=== PATIENT | female | born 1980 | race Caucasian/White ===

== ENCOUNTER 2019-11-20 16:51 | Emergency (ER) | payer MEDICAID ==
[2019-11-20 17:30] VITALS: PULSE 68
--- NOTE | 2019-11-20 17:36 | ERPHSYRPT ---
- History of Present Illness Time Seen by Provider: 11/20/19 17:33 Source: patient Exam Limitations: no limitations Patient Subjective Stated Complaint: patient states " i have been coughing for last 3 weeks" Patient stated she just returned from [place]. Patient states she was staying with [id number] in which she was exposed to second hand smoke. Patient states she has chronic Bronchitis. Patient states she is unable to lay flat R/T SOB. Triage Nursing Assessment: Patient arrived and ambulated with steady gait to room. Patient at bedside. Patient A/O times 4. Patient able to answer questions appropriatley. Patient noted with congested cough. Lungs noted with wheezes throughout A/P. Respiratory non-labored. No respiratory distress noted. Patient did cough up scant/small amount of whitish sputum. Physician History: patient states " i have been coughing for last 3 weeks" Patient stated she just returned from [place]. Patient states she was staying with [id number] in which she was exposed to second hand smoke. Patient states she has chronic Bronchitis. Patient states she is unable to lay flat R/T SOB. Timing/Duration: week(s) (three weeks) Cough Quality/Degree: productive cough Associated Symptoms: denies symptoms International travel in last 2 weeks: No Allergies/Adverse Reactions: aspirin Allergy (Verified 11/20/19 17:02) Hx Tetanus, Diphtheria Vaccination/Date Given: No Hx Influenza Vaccination/Date Given: Yes Hx Pneumococcal Vaccination/Date Given: No - Review of Systems Constitutional: No Fever, No Chills Eyes: No Symptoms Ears, Nose, & Throat: No Symptoms Respiratory: Cough, No Dyspnea Cardiac: No Chest Pain, No Edema, No Syncope Abdominal/Gastrointestinal: No Abdominal Pain, No Nausea, No Vomiting, No Diarrhea Genitourinary Symptoms: No Dysuria Musculoskeletal: No Back Pain, No Neck Pain Skin: No Rash Neurological: No Dizziness, No Focal Weakness, No Sensory Changes Psychological: No Symptoms Endocrine: No Symptoms All Other Systems: Reviewed and Negative - Past Medical History Neurological History: Migraines ENT History: No Pertinent History Cardiac History: No Pertinent History Respiratory History: Bronchitis Endocrine Medical History: Hypoglycemia Musculoskeletal History: Fractures GI Medical History: No Pertinent History History: No Pertinent History Psycho-Social History: Depression, Other Female Reproductive Disorders: No Pertinent History Other Medical History: PTSD - Past Surgical History Past Surgical History: Yes Neuro Surgical History: No Pertinent History Cardiac: No Pertinent History Respiratory: No Pertinent History Gastrointestinal: Cholecystectomy Genitourinary: No Pertinent History Musculoskeletal: Orthopedic Surgery Female Surgical History: Section Other Surgical History: Patient states she is slow to wake up after Anesthesia. Patient 4 C-sections. Patient states she had Right broken shoulder and right ankle FX. Patient states they did not complete surgery just set them. - Social History Smoking Status: Former smoker Exposure to second hand smoke: Yes Drug Use: none Patient Lives Alone: No - Female History Hx Last Menstrual Period: 11/11/2019 Hx Now: No - Nursing Vital Signs Nursing Vital Signs: Initial Vital Signs Temperature 98.2 F 11/20/19 17:04 Pulse Rate 68 11/20/19 17:04 Respiratory Rate 20 11/20/19 17:04 Blood Pressure 124/88 11/20/19 17:04 O2 Sat by Pulse Oximetry 98 11/20/19 17:04 Pain Scale Pain Intensity 0 - Physical Exam General Appearance: no apparent distress, alert Eye Exam: PERRL/EOMI, eyes nml inspection Ears, Nose, Throat Exam: normal ENT inspection, TMs normal, pharynx normal, moist mucous membranes Neck Exam: normal inspection, non-tender, supple, full range of motion Respiratory Exam: diminished breath sounds, rhonchi, No respiratory distress Cardiovascular Exam: regular rate/rhythm, normal heart sounds Gastrointestinal/Abdomen Exam: soft, No tenderness Back Exam: normal inspection, No CVA tenderness, No vertebral tenderness Extremity Exam: normal inspection, normal range of motion Neurologic Exam: alert, oriented x 3, cooperative, normal mood/affect, sensation nml, No motor deficits Skin Exam: normal color, warm, dry, No rash Lymphatic Exam: No adenopathy SpO2: 98 - Course Nursing assessment & vital signs reviewed: Yes - Radiology Exams Chest X-ray Interpretation: Reviewed by me (bronchitic changes) Ordered Tests: Active Orders 24 hr Category Date Time Status CHEST 2 VIEWS (PA AND LAT) Stat Exams 11/20/19 17:06 Taken CBC W DIFF Stat Lab 11/20/19 17:06 Ordered CMP Stat Lab 11/20/19 17:06 Ordered - Progress Progress: improved Air Movement: good Blood Culture(s) Obtained: No Antibiotics given: Yes Counseled pt/family regarding: lab results, diagnosis, need for follow-up, rad results - Departure Departure Disposition: Home Clinical Impression: Bronchitis Condition: Stable Critical Care Time: No Referrals: HERVE GANNON, [ACTIVE STAFF] - Follow Up with PCP/3 days Instructions: Cough, Adult (DC), Acute Bronchitis, Adult (DC) Additional Instructions: Discharge/Care Plan ROSEANNA WASHINGTON was seen on 11/20/19 in the Emergency Room. The patient was counseled regarding Diagnosis,Lab results, Imaging studies, need for follow up and when to return to the Emergency Room. Prescriptions given: Discharge Note I have spoken with the patient and/or caregivers. I have explained the patient' s condition, diagnosis and treatment plan based on the information available to me at this time. I have answered the patient's and/or caregiver's questions and addressed any concerns. The patient and/or caregivers have as good understanding of the patient's diagnosis, condition and treatment plan as can be expected at this point. The vital signs have been stable. The patient's condition is stable and appropriate for discharge from the emergency department. The patient will pursue further outpatient evaluation with the primary care physician or other designated or consulting physician as outlined in the discharge instructions. The patient and/or caregivers are agreeable to this plan of care and follow-up instructions have been explained in detail. The patient and/or caregivers have received these instruction. The patient/and or caregivers are aware that any significant change in condition or worsening of symptoms should prompt an immediate return to this or the closest emergency department or call 911. ROSEANNA WASHINGTON was seen on 11/20/19 n the Emergency Room. At that time you were treated for an emergent condition, during your visit Laboratory, Radiology and/ or other procedures may have been ordered. It is very important that you follow- up with your Primary Care Physician within the next 24-48 hours to review your Emergency Room visit and the final results of testing that was ordered. Some test results such as Urine Cultures, Blood Cultures, and other cultures if ordered will not be finalized for 24-48 hours. If you do not have a Primary Care Provider please call the medical records department at [phone] ext [phone] to obtain a copy of your results or you may sign into our patient portal to obtain these results by visiting us @ [email or web address] and completing the following steps: 1. Click on the Patient Portal link 2. Click the Patient Self Enrollment Link to complete the enrollment form and entering your 3. Once the enrollment form is completed you will receive an email with a temporary ID and password at the email address you provided. 4. Next choose a user name and password. Your user name must be at least 4 characters long and your password must be at least 4 characters long. 5. Choose a security question from the list and provide your answer to the question. If you already have signed into the Health Portal you may access your Health Care Information 09/06 by the following steps: 1. Login to our website @ [email or web address] 2. Enter your original user name and password. FAQS The [facility] Health Portal is an online tool that contains your Lab Results, Radiology Reports, Visit History, Discharge Instructions and Health Summary Lab and Radiology Results will not be available for 72 hours on the portal. The Portal is a secure site, passwords are encryted and URLs are re-written so they cannot be copied and pasted. You and authorized family members are the only ones who can access your Portal. Also there is a timeout feature that protects your information if you leave the Portal page open. If you have technical difficulty please use the Contact Us link on the page this will allow you to submit any questions you have regarding the Portal or you may contact the Medical Record Department at [phone] ext [phone]. Prescriptions: Amoxicillin 500 mg PO TID #30 tablet Benzonatate [Tessalon Perle] 100 mg PO QID #30 capsule
[2019-11-20] MEDS ORDERED: Rocephin 1000 MG INJ IM ONE (17:37)
[2019-11-20] MEDS ORDERED: XYLOCAINE 1% HCL 20 ML MDV ONE (17:40)
[2019-11-20] MEDS ORDERED: Rocephin 1000 MG INJ ONE (17:40)
[2019-11-20 18:01] LABS: Absolute Neutrophil Ct (ANC) 5.05 (1.4-6.9); BASOPHIL % 0.8 % (0.0-0.4); Basophil (Absolute #) 0.06 (0-0.4); Eosinophil (Absolute #) 0.24 (0-0.5); Hematocrit 37.2 % (35-47); Hemoglobin 11.5 gm/dl (12.0-16.0); Lymphocyte (Absolute #) 1.98 (1.0-4.6); Mean Cell Volume 79.7 fl (78-100); Mean Corpuscular Hemoglobin 24.6 pg (26-32); Mean Corpuscular Hgb Concent. 30.9 g/dl (32-36); Mean Platelet Volume 10.4 fl (7.5-11.0); Monocytes % 7.6 % (0.0-12.0); Neutrophil % 63.6 % (36.0-66.0); Platelet Count 405 K/mm3 (150-450); Red Blood Count 4.67 M/mm3 (4.1-5.4); Red Cell Distribution Width 14.9 % (11.5-14.0); White Blood Count 7.9 K/mm3 (4.0-10.5)
[2019-11-20 18:14] LABS: ALKALINE PHOSPHATASE 114 U/L (38-126); ANION GAP 10.2 MEQ/L (5-15); BLOOD UREA NITROGEN 8 mg/dL (7-17); CHLORIDE 105 mmol/L (98-107); Calcium 9.4 mg/dL (8.4-10.2); Carbon Dioxide 28 mmol/L (22-30); Glucose 95 mg/dL (74-106); Potassium 4.3 mmol/L (3.5-5.1); SGOT/AST 18 U/L (14-36); SGPT/ALT 11 U/L (0-35); SODIUM 139 mmol/L (137-145)
[2019-11-20 18:19] VITALS: BP 123/90; O2SAT 99
--- NOTE | 2019-11-20 20:10 | XRAY ---
Indication: Cough 3 weeks. Low-grade fever. Comparison: None PA/lateral chest demonstrates minimal bilateral infrahilar interstitial opacities, possibly pneumonitis in the right clinical setting. Remaining heart, upper lungs, and bony thorax are unremarkable.
== END 2019-11-20 18:19 | disposition home or self-care (01) ==
LOC: ED 16:51
DX: J40 Bronchitis, not specified as acute or chronic (principal)
CPT/HCPCS: 36415; 71046; 80053; 85025; 96372; 99284; J0696

== ENCOUNTER 2019-12-03 22:01 | Emergency (ER) | payer MEDICAID ==
[2019-12-03] MEDS ORDERED: SUBLIMAZE 100 MCG/2 ML IV ONE (22:11)
[2019-12-03] MEDS ORDERED: Sodium Chloride 0.9% 1000 ML 1,000 ML IV STA (22:11)
[2019-12-03 22:35] LABS: Absolute Neutrophil Ct (ANC) 5.63 (1.4-6.9); BASOPHIL % 0.6 % (0.0-0.4); Basophil (Absolute #) 0.06 (0-0.4); Eosinophil % 1.8 % (0.00-5.0); Eosinophil (Absolute #) 0.17 (0-0.5); Hematocrit 37.8 % (35-47); Hemoglobin 11.9 gm/dl (12.0-16.0); Lymphocyte (Absolute #) 2.86 (1.0-4.6); Lymphocytes % 29.8 % (24.0-44.0); Mean Cell Volume 78.3 fl (78-100); Mean Corpuscular Hemoglobin 24.6 pg (26-32); Mean Corpuscular Hgb Concent. 31.5 g/dl (32-36); Monocyte (Absolute #) 0.88 (0.0-1.3); Monocytes % 9.2 % (0.0-12.0); Neutrophil % 58.6 % (36.0-66.0); Platelet Count 337 K/mm3 (150-450); Red Blood Count 4.83 M/mm3 (4.1-5.4); Red Cell Distribution Width 14.9 % (11.5-14.0); White Blood Count 9.6 K/mm3 (4.0-10.5)
[2019-12-03] MEDS ORDERED: SUBLIMAZE 100 MCG/2 ML ONE (22:41)
[2019-12-03] MEDS ORDERED: Sodium Chloride 0.9% 1000 ML 1,000 ML ONE (22:41)
[2019-12-03 22:45] LABS: ALBUMIN 4.1 g/dL (3.5-5.0); ALKALINE PHOSPHATASE 99 U/L (38-126); AMYLASE 66 U/L (30-110); ANION GAP 11.7 MEQ/L (5-15); BLOOD UREA NITROGEN 16 mg/dL (7-17); CHLORIDE 103 mmol/L (98-107); Calcium 9.3 mg/dL (8.4-10.2); Carbon Dioxide 27 mmol/L (22-30); Creatinine 1 0.82 mg/dL (0.52-1.04); Glucose 114 mg/dL (74-106); LIPASE 119 U/L (23-300); Potassium 4.1 mmol/L (3.5-5.1); SGOT/AST 17 U/L (14-36); SGPT/ALT 12 U/L (0-35); SODIUM 138 mmol/L (137-145); Total Protein 7.9 g/dL (6.3-8.2)
[2019-12-03] MEDS ORDERED: BENADRYL 50 MG/ML IM ONE (23:11)
[2019-12-03] MEDS ORDERED: BENADRYL 50 MG/ML ONE (23:14)
[2019-12-03 23:20] VITALS: BP 142/104
[2019-12-04 00:22] VITALS: PULSE 76; O2SAT 98
--- NOTE | 2019-12-04 00:34 | ERPHSYRPT ---
- History of Present Illness Time Seen by Provider: 12/03/19 22:28 Historian: patient Exam Limitations: no limitations Patient Subjective Stated Complaint: pt states that she has had pain in r leg that radiates from calf to belly. states that pain has been going on since this am. Triage Nursing Assessment: pt states pain is 9/10 in both legs and abdomen Physician History: patient is a 39-year-old female who presents with a very strange symptom complex. She says that she started with cramps in the muscles of her leg which then moved into her abdomen. The pain has continued. Timing/Duration: today (in her and he) Activities at Onset: none Quality: cramping Abdominal Pain Onset Location: RLQ, LLQ, suprapubic Pain Radiation: no radiation Severity of Pain-Max: moderate Severity of Pain-Current: moderate Modifying Factors: Improves With: movement, palpation Associated Symptoms: weakness Previous symptoms: no prior history Allergies/Adverse Reactions: aspirin Allergy (Verified 11/20/19 17:02) Home Medications: Alprazolam 0.25 mg [xanAX 0.25 MG] 0.25 mg PO HS 11/20/19 [History] Bupropion HCl [Bupropion Xl] 150 mg PO DAILY 11/20/19 [History] Doxepin HCl 10 mg PO HS 11/20/19 [History] Ergocalciferol (Vitamin D2) [Vitamin D] 50,000 unit PO DAILY 11/20/19 [History] Ferrous Sulfate [Iron] 325 mg PO DAILY 11/20/19 [History] Fluoxetine HCl 20 mg [Prozac 20 MG] 40 mg PO DAILY 11/20/19 [History] Furosemide [Lasix] 20 mg PO DAILY 11/20/19 [History] lamoTRIgine [Lamotrigine] 100 mg PO DAILY 11/20/19 [History] Hx Tetanus, Diphtheria Vaccination/Date Given: No Hx Influenza Vaccination/Date Given: Yes Hx Pneumococcal Vaccination/Date Given: No - Review of Systems Constitutional: No Fever, No Chills Eyes: No Symptoms Ears, Nose, & Throat: No Symptoms Respiratory: No Cough, No Dyspnea Cardiac: No Chest Pain, No Edema, No Syncope Abdominal/Gastrointestinal: Abdominal Pain, No Nausea, No Vomiting, No Diarrhea Genitourinary Symptoms: No Dysuria Musculoskeletal: Myalgias, No Back Pain, No Neck Pain Skin: No Rash Neurological: No Dizziness, No Focal Weakness, No Sensory Changes Psychological: No Symptoms Endocrine: No Symptoms All Other Systems: Reviewed and Negative - Past Medical History Pertinent Past Medical History: Yes Neurological History: Migraines ENT History: No Pertinent History Cardiac History: No Pertinent History Respiratory History: Bronchitis Endocrine Medical History: Hypoglycemia Musculoskeletal History: Fractures GI Medical History: No Pertinent History History: No Pertinent History Psycho-Social History: Depression, Other Female Reproductive Disorders: No Pertinent History Other Medical History: PTSD - Past Surgical History Past Surgical History: Yes Neuro Surgical History: No Pertinent History Cardiac: No Pertinent History Respiratory: No Pertinent History Gastrointestinal: Cholecystectomy Genitourinary: No Pertinent History Musculoskeletal: Orthopedic Surgery Female Surgical History: Section Other Surgical History: Patient states she is slow to wake up after Anesthesia. Patient 4 C-sections. Patient states she had Right broken shoulder and right ankle FX. Patient states they did not complete surgery just set them. - Social History Smoking Status: Former smoker Exposure to second hand smoke: Yes Drug Use: none Patient Lives Alone: No - Female History Hx Last Menstrual Period: 11/17/19 Hx Now: No - Nursing Vital Signs Nursing Vital Signs: Initial Vital Signs Temperature 97.4 F 12/03/19 22:08 Pulse Rate 88 12/03/19 22:08 Respiratory Rate 18 12/03/19 22:08 Blood Pressure 169/103 12/03/19 22:08 O2 Sat by Pulse Oximetry 98 12/03/19 22:08 Pain Scale Pain Intensity 8 - Physical Exam General Appearance: no apparent distress, alert Eye Exam: PERRL/EOMI, eyes nml inspection Ears, Nose, Throat Exam: normal ENT inspection, pharynx normal, moist mucous membranes Neck Exam: normal inspection, non-tender, supple, full range of motion Respiratory Exam: normal breath sounds, lungs clear, No respiratory distress Cardiovascular Exam: regular rate/rhythm, normal heart sounds Gastrointestinal/Abdomen Exam: soft, No tenderness, No mass Back Exam: normal inspection, normal range of motion, No CVA tenderness, No vertebral tenderness Extremity Exam: normal inspection, normal range of motion, pelvis stable, other (all generalized muscle tenderness both lower extremities and lower abdomen) Neurologic Exam: alert, oriented x 3, cooperative, normal mood/affect, nml cerebellar function, sensation nml, No motor deficits Skin Exam: normal color, warm, dry SpO2: 98 - Course Nursing assessment & vital signs reviewed: Yes - CT Exams Abdomen/Pelvis CT Interpretation: Negative Ordered Tests: Active Orders 24 hr Category Date Time Status IV Insertion STAT Care 12/03/19 22:11 Active ABDOMEN AND PELVIS W CONTRAST [CT] Stat Exams 12/03/19 22:21 Taken CHEST WITH CONTRAST [CT] Stat Exams 12/03/19 22:44 Stop Req AMYLASE Stat Lab 12/03/19 22:34 Completed CBC W DIFF Stat Lab 12/03/19 22:34 Completed CK (IN-HOUSE) [CK-Creatinine Phosphokinase] Stat Lab 12/03/19 22:34 Completed CMP Stat Lab 12/03/19 22:34 Completed D-DIMER QUANTITATIVE Stat Lab 12/03/19 22:34 Completed LIPASE Stat Lab 12/03/19 22:34 Completed Lactic Acid Stat Lab 12/03/19 22:48 Completed UA W/RFX UR CULTURE Stat Lab 12/04/19 00:08 Ordered Medication Summary Discontinued Medications Generic Name Dose Route Start Last Admin Trade Name Julio César PRN Reason Stop Dose Admin Diphenhydramine HCl 50 mg 12/03/19 23:11 12/03/19 23:15 Benadryl 50 Mg/Ml IM 12/03/19 23:12 50 mg STAT ONE Administration Diphenhydramine HCl Confirm 12/03/19 23:14 Benadryl 50 Mg/Ml Administered 12/03/19 23:15 Dose 50 mg .ROUTE .STK-MED ONE Fentanyl Citrate 100 mcg 12/03/19 22:11 12/03/19 22:51 Sublimaze 100 Mcg/2 Ml IV 12/03/19 22:12 100 mcg STAT ONE Administration Fentanyl Citrate Confirm 12/03/19 22:41 Sublimaze 100 Mcg/2 Ml Administered 12/03/19 22:42 Dose 100 mcg .ROUTE .STK-MED ONE Sodium Chloride 1,000 mls @ 999 mls/hr 12/03/19 22:11 12/03/19 22:50 Sodium Chloride 0.9% 1000 Ml IV 12/03/19 23:11 999 mls/hr .Q1H1M STA Administration Sodium Chloride Confirm 12/03/19 22:41 Sodium Chloride 0.9% 1000 Ml Administered 12/03/19 22:42 Dose 1,000 mls @ ud .ROUTE .STK-MED ONE Lab/Rad Data: Laboratory Result Diagrams 12/03/19 22:34 12/03/19 22:34 Laboratory Results 12/03/19 12/03/19 12/03/19 Range/Units 22:48 22:34 22:34 WBC (4.0-10.5) K/mm3 RBC (4.1-5.4) M/mm3 Hgb (12.0-16.0) gm/dl Hct (35-47) % MCV (78-100) fl MCH (26-32) pg MCHC (32-36) g/dl RDW (11.5-14.0) % Plt Count (150-450) K/mm3 MPV (7.5-11.0) fl Gran % (36.0-66.0) % Eos # (Auto) (0-0.5) Absolute Lymphs (auto) (1.0-4.6) Absolute Monos (auto) (0.0-1.3) Lymphocytes % (24.0-44.0) % Monocytes % (0.0-12.0) % Eosinophils % (0.00-5.0) % Basophils % (0.0-0.4) % Absolute Granulocytes (1.4-6.9) Basophils # (0-0.4) D-Dimer 574 H* (215-500) ng/mL Sodium (137-145) mmol/L Potassium (3.5-5.1) mmol/L Chloride (98-107) mmol/L Carbon Dioxide (22-30) mmol/L Anion Gap (5-15) MEQ/L BUN (7-17) mg/dL Creatinine (0.52-1.04) mg/dL Estimated GFR ML/MIN Glucose (74-106) mg/dL Lactic Acid 1.2 (0.4-2.0) Calcium (8.4-10.2) mg/dL Total Bilirubin (0.2-1.3) mg/dL AST (14-36) U/L ALT (0-35) U/L Alkaline Phosphatase (38-126) U/L Creatine Kinase 266 H (30-135) U/L Serum Total Protein (6.3-8.2) g/dL Albumin (3.5-5.0) g/dL Amylase (30-110) U/L Lipase (23-300) U/L 12/03/19 12/03/19 Range/Units 22:34 22:34 WBC 9.6 (4.0-10.5) K/mm3 RBC 4.83 (4.1-5.4) M/mm3 Hgb 11.9 L (12.0-16.0) gm/dl Hct 37.8 (35-47) % MCV 78.3 (78-100) fl MCH 24.6 L (26-32) pg MCHC 31.5 L (32-36) g/dl RDW 14.9 H (11.5-14.0) % Plt Count 337 (150-450) K/mm3 MPV 11.0 (7.5-11.0) fl Gran % 58.6 (36.0-66.0) % Eos # (Auto) 0.17 (0-0.5) Absolute Lymphs (auto) 2.86 (1.0-4.6) Absolute Monos (auto) 0.88 (0.0-1.3) Lymphocytes % 29.8 (24.0-44.0) % Monocytes % 9.2 (0.0-12.0) % Eosinophils % 1.8 (0.00-5.0) % Basophils % 0.6 (0.0-0.4) % Absolute Granulocytes 5.63 (1.4-6.9) Basophils # 0.06 (0-0.4) D-Dimer (215-500) ng/mL Sodium 138 (137-145) mmol/L Potassium 4.1 (3.5-5.1) mmol/L Chloride 103 (98-107) mmol/L Carbon Dioxide 27 (22-30) mmol/L Anion Gap 11.7 (5-15) MEQ/L BUN 16 (7-17) mg/dL Creatinine 0.82 (0.52-1.04) mg/dL Estimated GFR > 60.0 ML/MIN Glucose 114 H (74-106) mg/dL Lactic Acid (0.4-2.0) Calcium 9.3 (8.4-10.2) mg/dL Total Bilirubin 0.30 (0.2-1.3) mg/dL AST 17 (14-36) U/L ALT 12 (0-35) U/L Alkaline Phosphatase 99 (38-126) U/L Creatine Kinase (30-135) U/L Serum Total Protein 7.9 (6.3-8.2) g/dL Albumin 4.1 (3.5-5.0) g/dL Amylase 66 (30-110) U/L Lipase 119 (23-300) U/L - Progress Progress: improved - Departure Departure Disposition: Home Clinical Impression: Myalgia Condition: Fair Critical Care Time: No Referrals: DOCTOR,NO FAMILY [Primary Care Provider] - Instructions: Muscle Spasms (DC) Prescriptions: Hydrocodone/APAP 5-325 Tab^^^ [[place] 5-325 Tablet^^^] 1 tab PO Q6HPRN PRN #10 tablet MDD 6 PRN Reason: Pain
[2019-12-04 01:02] LABS: Appearance CLOUDY (CLEAR); Bacteria FEW /HPF (NEGATIVE); Bilirubin NEGATIVE (NEGATIVE); Blood SMALL Ery/ul (0-5); Epithelial Cells RARE /HPF (FEW); Glucose NEGATIVE (NEGATIVE); Ketones NEGATIVE (NEGATIVE); Leukocyte Esterase NEGATIVE (NEGATIVE); Mucus SLIGHT /HPF (NEGATIVE); Nitrite NEGATIVE (NEGATIVE); Protein,Urine Dip NEGATIVE (Negative); Specific Gravity >1.060 (1.005-1.025); Urobilinogen NEGATIVE mg/dL (0-1)
[2019-12-04 01:03] LABS: Budding Yeast Rare /HPF (NEGATIVE)
--- NOTE | 2019-12-04 08:27 | XRAY ---
Indication: Bilateral leg pain. Multiple contiguous axial images obtained through the abdomen and pelvis using 80 cc of Isovue-370 contrast only. Comparison: None Lung bases are clear. Heart is not enlarged. Stomach is distended with food. Noncontrasted stomach and bowel loops appear nonobstructed. Normal appendix. There is mild scattered colonic fecal debris throughout. Minimal scattered descending and sigmoid diverticulosis. Previous cholecystectomy. No free fluid/air. Remaining liver, pancreas, spleen, adrenal glands, kidneys, ureters, bladder, uterus, aorta, and IVC appear unremarkable. No pathologic retroperitoneal lymphadenopathy. Osseous structures intact. Impression: 1. Mild fecal stasis without obstruction and minimal colonic diverticulosis. 2. Remaining CT abdomen/pelvis with contrast exam is negative. Comment: Preliminary interpretation was made by [facility]. No critical discrepancy.
== END 2019-12-04 00:56 | disposition home or self-care (01) ==
LOC: ED 22:01
DX: M79.18 Myalgia, other site (principal); R10.13 Epigastric pain; R10.31 Right lower quadrant pain; R10.32 Left lower quadrant pain; Z79.899 Other long term (current) drug therapy; E16.2 Hypoglycemia, unspecified; F43.12 Post-traumatic stress disorder, chronic
CPT/HCPCS: 36000; 36415; 74177; 80053; 81001; 82150; 82550; 83605; 83690; 85025; 85379; 87086; 96374; 96375; 99284; J1200; J3010

== ENCOUNTER 2019-12-16 09:32 | Emergency (ER) | payer MEDICAID, OTHER ==
[2019-12-16] MEDS ORDERED: ZOFRAN ODT 4 MG PO ONE (10:17)
[2019-12-16] MEDS ORDERED: ZOFRAN ODT 4 MG ONE (10:19)
[2019-12-16 10:40] LABS: VBG BASE EXCESS 2.2 (-2.0-2.0); VBG CARBOXYHEMOGLOBIN 17.7 % T HGB (0.0-6.9); VBG HCO3- 25.1 meq/L (22-28); VBG HEMOGLOBIN 12.1; VBG O2 SATURATION 98.5 (95-100); VBG POTASSIUM 4.6 (3.5-5.1); VBG pH 7.49 (7.32-7.42)
--- NOTE | 2019-12-16 10:50 | ERPHSYRPT ---
- History of Present Illness Time Seen by Provider: 12/16/19 09:45 Source: patient Exam Limitations: no limitations Patient Subjective Stated Complaint: headache Triage Nursing Assessment: Patient ambulated into ED and transferred self to bed. Patient A+O x.3 Patient's skin pink, warm and dry. Patient complains of waking up this am with a headache. Patient complains of throbbing headache 9/ 10. Patient complains of dizziness and nausea. Pupils PERRL. Physician History: 39 history migraines the ER chief complaint of headache since yesterday, all over, moderate intensity, no significant aggravating or relieving factors, associated with nausea and vomiting since morning x2. No abdominal pain. Headache is similar to previous episodes and does not think this is the worst headache of her life. Denies any focal numbness tingling or weakness. Other family members have headache and vomiting since morning and they have been using kerosene heater for the last 2 days. Timing/Duration: yesterday Quality: sharpness Head Pain Location: global Severity of Pain-Max: moderate Severity of Pain-Current: moderate Recent Head Trauma: no recent headache/trauma Associated Symptoms: fatigue (he is getting a little lightheadedthank you for do that I had a he is), light-headedness, nausea/vomiting (iis 82 he is a little boy in and I), No neck pain, No numbness in legs/feet, No seizures, No speech problems, No stiff neck, No trouble walking, No vision changes ( I will) , No visual disturbance Previous symptoms: same symptoms as today Allergies/Adverse Reactions: aspirin Allergy (Verified 12/16/19 09:48) Home Medications: Alprazolam 0.25 mg [xanAX 0.25 MG] 0.25 mg PO HS 11/20/19 [History] Bupropion HCl [Bupropion Xl] 150 mg PO DAILY 11/20/19 [History] Doxepin HCl 10 mg PO HS 11/20/19 [History] Ergocalciferol (Vitamin D2) [Vitamin D] 50,000 unit PO DAILY 11/20/19 [History] Ferrous Sulfate [Iron] 325 mg PO DAILY 11/20/19 [History] Fluoxetine HCl 20 mg [Prozac 20 MG] 40 mg PO DAILY 11/20/19 [History] Furosemide [Lasix] 20 mg PO DAILY 11/20/19 [History] lamoTRIgine [Lamotrigine] 100 mg PO DAILY 11/20/19 [History] Hx Tetanus, Diphtheria Vaccination/Date Given: No Hx Influenza Vaccination/Date Given: Yes Hx Pneumococcal Vaccination/Date Given: No Immunizations Up to Date: Yes - Review of Systems Constitutional: Fatigue Eyes: No Symptoms Ears, Nose, & Throat: No Symptoms Respiratory: No Symptoms Cardiac: No Symptoms Abdominal/Gastrointestinal: Nausea, Vomiting Genitourinary Symptoms: No Symptoms Musculoskeletal: No Symptoms Skin: No Symptoms Neurological: Dizziness, Headache Psychological: No Symptoms Endocrine: No Symptoms Hematologic/Lymphatic: No Symptoms Immunological/Allergic: No Symptoms - Past Medical History Pertinent Past Medical History: Yes Neurological History: Migraines ENT History: No Pertinent History Cardiac History: No Pertinent History Respiratory History: Bronchitis Endocrine Medical History: Hypoglycemia Musculoskeletal History: Fractures GI Medical History: No Pertinent History History: No Pertinent History Psycho-Social History: Depression, Other Female Reproductive Disorders: No Pertinent History Other Medical History: PTSD - Past Surgical History Past Surgical History: Yes Neuro Surgical History: No Pertinent History Cardiac: No Pertinent History Respiratory: No Pertinent History Gastrointestinal: Cholecystectomy Genitourinary: No Pertinent History Musculoskeletal: Orthopedic Surgery Female Surgical History: Section Other Surgical History: Patient states she is slow to wake up after Anesthesia. Patient 4 C-sections. Patient states she had Right broken shoulder and right ankle FX. Patient states they did not complete surgery just set them. - Social History Smoking Status: Never smoker Exposure to second hand smoke: No Drug Use: none Patient Lives Alone: No - Female History Hx Last Menstrual Period: yesterday Hx Now: No - Nursing Vital Signs Nursing Vital Signs: Initial Vital Signs Pulse Rate 129 H 12/16/19 09:48 Respiratory Rate 18 12/16/19 09:48 Blood Pressure 173/76 12/16/19 09:48 O2 Sat by Pulse Oximetry 96 12/16/19 09:48 Pain Scale Pain Intensity 4 - Physical Exam General Appearance: no apparent distress, alert Eye Exam: PERRL/EOMI, eyes nml inspection Ears, Nose, Throat Exam: normal ENT inspection Neck Exam: normal inspection, supple, full range of motion Respiratory Exam: normal breath sounds, lungs clear, respiratory distress Cardiovascular Exam: regular rate/rhythm, normal heart sounds, normal peripheral pulses Gastrointestinal/Abdominal Exam: soft Back Exam: normal inspection, normal range of motion Extremity Exam: normal inspection, normal range of motion Mental Status Exam: alert, oriented x 3, cooperative retail business development manager Exam: normal hearing, normal speech, PERRL Coordination/Gait Exam: normal finger to nose, normal cerebellar function, negative Romberg's sign Motor/Sensory Exam: no motor deficit, no sensory deficit, no pronator drift, negative Babinski's sign Skin Exam: normal color SpO2 Interpretation: normal SpO2: 99 O2 Delivery: Room Air Ordered Tests: Active Orders 24 hr Category Date Time Status CK (IN-HOUSE) [CK-Creatinine Phosphokinase] Stat Lab 12/16/19 11:15 Completed Lactic Acid Stat Lab 12/16/19 10:59 Completed VBG [VENOUS BLOOD GAS] Stat Lab 12/16/19 10:35 Completed VENOUS BLOOD GAS Stat Lab 12/16/19 14:33 Completed Medication Summary Discontinued Medications Generic Name Dose Route Start Last Admin Trade Name Freq PRN Reason Stop Dose Admin Acetaminophen 975 mg 12/16/19 15:40 12/16/19 15:41 Tylenol 325 Mg PO 12/16/19 15:41 975 mg STAT STA Administration Acetaminophen Confirm 12/16/19 15:41 Tylenol 325 Mg Administered 12/16/19 15:42 Dose 975 mg .ROUTE .STK-MED ONE Ondansetron HCl 4 mg 12/16/19 10:17 12/16/19 10:21 Zofran Odt 4 Mg PO 12/16/19 10:18 4 mg STAT ONE Administration Ondansetron HCl Confirm 12/16/19 10:19 Zofran Odt 4 Mg Administered 12/16/19 10:20 Dose 4 mg .ROUTE .STK-MED ONE Lab/Rad Data: Laboratory Results 12/16/19 12/16/19 12/16/19 Range/Units 14:33 11:15 10:59 pO2/FiO2 Ratio 100.0 % VBG pH 7.42 (7.32-7.42) VBG pCO2 at Pat Temp 40 L (42-55) mm/Hg VBG pO2 at Pat Temp 264 H (25-40) mm/Hg VBG HCO3 25.9 (22-28) meq/L VBG O2 Sat (Deepa) 99.1 (95-100) VBG Base Excess 1.3 (-2.0-2.0) VBG Hemoglobin 14.4 VBG Carboxyhemoglobin 5.5 (0.0-6.9) % T HGB POC Potassium 4.1 (3.5-5.1) Lactic Acid 0.6 (0.4-2.0) Creatine Kinase 35 (30-135) U/L 12/16/19 Range/Units 10:35 pO2/FiO2 Ratio 100.0 % VBG pH 7.49 H (7.32-7.42) VBG pCO2 at Pat Temp 33 L (42-55) mm/Hg VBG pO2 at Pat Temp 220 H (25-40) mm/Hg VBG HCO3 25.1 (22-28) meq/L VBG O2 Sat (Deepa) 98.5 (95-100) VBG Base Excess 2.2 H (-2.0-2.0) VBG Hemoglobin 12.1 VBG Carboxyhemoglobin 17.7 H* (0.0-6.9) % T HGB POC Potassium 4.6 (3.5-5.1) Lactic Acid (0.4-2.0) Creatine Kinase (30-135) U/L - Progress Progress: improved, re-examined Air Movement: good Progress Note: 12/16/19 15:50 39 years old is evaluated for headache with nausea and vomiting since yesterday. They have been using kerosene heater and other family members have similar symptoms. I believe she has got a monoxide poisoning. Her carboxyhemoglobin level was high and after consultation with poison control, placed 100% oxygen and given Zofran and Tylenol and her symptoms are improved. She has nonfocal neuro exam through her stay in the ER. Her dizziness/ lightheadedness is also improved. She has no other neuro deficit either any other symptoms. I believe her headache is partly because of her migraine and is more greater because of CO poisoning. Fire department is informed and the patient would not be going home tonight and along with other family members will go to a safe place/motel and off for 24 hours we'll go back. Recommended not using kerosene heater again and discussed the symptoms signs of worsening needed return to the ER which she seems understanding. Stable for discharge. Antibiotics given: No Counseled pt/family regarding: lab results, diagnosis, need for follow-up - Departure Departure Disposition: Home Clinical Impression: Carbon monoxide poisoning Qualifiers: Encounter type: initial encounter Injury intent: accidental or unintentional Qualified Code(s): T58.91XA - Toxic effect of carbon monoxide from unspecified source, accidental (unintentional), initial encounter Condition: Stable Critical Care Time: No Referrals: DOCTOR,NO FAMILY [Primary Care Provider] - IGNACIA RAINEY [ACTIVE STAFF] - (1-2 days for re evaluation) Instructions: Carbon Monoxide Poisoning (DC), Headache, Adult (DC) Additional Instructions: do not use kerosene heater/[employer] for heating. Do not go back to your home for 24 hours. Follow up with primary care for reevaluation in the morning. Return to the ER for worsening headache/vomiting/confusion/dizziness or lightheadedness.
[2019-12-16 14:35] LABS: VBG BASE EXCESS 1.3 (-2.0-2.0); VBG CARBOXYHEMOGLOBIN 5.5 % T HGB (0.0-6.9); VBG HCO3- 25.9 meq/L (22-28); VBG HEMOGLOBIN 14.4; VBG O2 SATURATION 99.1 (95-100); VBG POTASSIUM 4.1 (3.5-5.1); VBG pH 7.42 (7.32-7.42)
[2019-12-16] MEDS ORDERED: TYLENOL 325 MG PO STA (15:40)
[2019-12-16] MEDS ORDERED: TYLENOL 325 MG ONE (15:41)
[2019-12-16 15:47] VITALS: BP 167/96; PULSE 74; O2SAT 99
== END 2019-12-16 16:02 | disposition home or self-care (01) ==
LOC: ED 09:32
DX: T58.91XA Toxic effect of carbon monoxide from unspecified source, accidental (unintentional), initial encounter (principal); T58.2X1A Toxic effect of carbon monoxide from incomplete combustion of other domestic fuels, accidental (unintentional), initial encounter; Y92.009 Unspecified place in unspecified non-institutional (private) residence as the place of occurrence of the external cause; R51 Headache
CPT/HCPCS: 36415; 82550; 82805; 83605; 99283; Q0162; A9270-GY